=== PATIENT | male | born 1950 | race Caucasian/White ===

== ENCOUNTER 2018-06-11 10:23 | Inpatient (IN) | payer MEDICARE, OTHER ==
[~2018-06-11] VITALS: Ht 172.7 cm; Wt 127.5 kg
--- NOTE | 2018-06-11 10:38 | NUR ---
Note undone in EDM - 06/11/18 at 1131 by MELVINA Pt extremely tremulous. Reports last drink of alcohol yesterday. Nl intake 12pk beer/daily. +nausea & anxiety. Hx withdrawal sz. Sz precautions IP,cardiac, NIbP & Spo2 monitors & IV NSL placed.
[2018-06-11] MEDS ORDERED: methylPREDNISolone SOD SUCC 125 MG/2 ML IVP ONE (11:00)
[2018-06-11] MEDS ORDERED: ALBUTEROL/IPRATROPIUM 2.5MG/0.5MG, 3 ML ONE ×3 (11:02→14:29)
[2018-06-11] MEDS ORDERED: ALBUTEROL SULFATE 2.5MG/0.5ML ONE (11:04)
[2018-06-11] MEDS: ALBUTEROL/IPRATROPIUM 2.5MG/0.5MG, 3 ML NPPB SCH ×3 (11:10→20:00)
--- NOTE | 2018-06-11 11:31 | NUR ---
lab at bedside. labs and bc drawn. vss. no other nees at this time.
[2018-06-11] MEDS ORDERED: methylPREDNISolone SOD SUCC 125 MG/2 ML ONE (11:34)
--- NOTE | 2018-06-11 11:47 | NUR ---
IV ESTABLISHED. MEDICATED PER JUN. PT CHANGED TO OXY MASK. VSS. NO NEEDS AT THIS TIME.
[2018-06-11 11:53] LABS: ALANINE AMINOTRANSFERASE 67 U/L (12-78); ALBUMIN 2.8 g/dL (3.4-5.0); ANION GAP 4 mmol/L (5-15); CALCIUM 8.4 mg/dL (8.5-10.1); CHLORIDE 107 mmol/L (98-107); CREATININE 1.53 mg/dL (0.7-1.3); PROTHROMBIN TIME 10.5 Seconds (9.6-11.5)
[2018-06-11 11:58] LABS: ALKALINE PHOSPHATASE 87 U/L (45-117); BILIRUBIN,TOTAL 0.8 mg/dL (0.2-1.0); TOTAL PROTEIN 6.4 g/dL (6.4-8.2)
[2018-06-11] MEDS ORDERED: LIPITOR PO (11:58)
[2018-06-11] MEDS ORDERED: SPIRIVA INH (11:58)
[2018-06-11] MEDS ORDERED: ALBUTEROL INH (11:58)
[2018-06-11] MEDS ORDERED: METO25TA35 PO (11:58)
[2018-06-11] MEDS ORDERED: ADVAIR INH (11:58)
[2018-06-11] MEDS ORDERED: SODIUM CHLORIDE 0.9%, 500ML IVBOLUS ONE (12:00)
[2018-06-11 12:01] LABS: MD YES; MEAN CORPUSCULAR HEMOGLOBIN 31.2 pg (27.5-34.5); MEAN CORPUSCULAR HGB CONC 33.6 g/dL (33.2-36.2); PLATELET COUNT 64 x10^3/uL (130-400); RED BLOOD COUNT 5.56 x10^6/uL (4.38-5.82); RED CELL DISTRIBUTION WIDTH 13.8 % (9.4-14.8); TROPONIN I 0.289 ng/mL (0.000-0.045)
[2018-06-11 12:04] LABS: EOS#(MANUAL) 0.06 x10^3/uL (0.0-0.4); EOS% (MANUAL) 1 % (1-7); LYMPH#(MANUAL) 0.72 x10^3/uL (1-3.4); LYMPHS% (MANUAL) 12 % (22-44); MONOS#(MANUAL) 0.48 x10^3/uL (0.3-2.7); MONOS% (MANUAL) 8 % (2-9); SEG#(MANUAL) 4.74 x10^3/uL (1.8-6.8); SEGS% (MANUAL) 79 % (42-75)
[2018-06-11 12:05] LABS: <PLATELET ESTIMATE> DECREASED; <RBC MORPHOLOGY> NORMAL; LARGE PLATELETS 1+
[2018-06-11] MEDS ORDERED: PIPERACILLIN/TAZO/PMX 4.5GM 100 ML IV ONE (12:30)
[2018-06-11] MEDS ORDERED: VANCOMYCIN PER PHARMACY MC PRN (12:30)
--- NOTE | 2018-06-11 12:45 | NUR ---
pt resting in room with family at bedside. vss. awaiting ct.
[2018-06-11] MEDS ORDERED: VANCOMYCIN 2,400 MG in SODIUM CHLORIDE 0.9% 500 ML IV ONE (13:00)
--- NOTE | 2018-06-11 13:05 | NUR ---
PT BACK FROM CT. AWAITING RESULTS.
[2018-06-11] MEDS ORDERED: OMNIPAQUE 350 MG/ML, 100ML BOTTLE ONE (13:12)
[2018-06-11] MEDS ORDERED: HEPARIN 25,000 UNITS/500ML PMX 500 ML ONE (13:52)
[2018-06-11] MEDS ORDERED: HEPARIN 5,000 UNITS/ML, 1ML ONE (13:52)
[2018-06-11] MEDS ORDERED: HEPARIN 5,000 UNITS/ML, 1ML IV ONE (14:00)
[2018-06-11] MEDS ORDERED: HEPARIN 25,000 UNITS/500ML PMX 500 ML IV PRN (14:00)
[2018-06-11] MEDS ORDERED: HEPARIN 5,000 UNITS/ML, 1ML IV PRN (14:00)
--- NOTE | 2018-06-11 15:08 | NUR ---
ANY [employer] TO BEDSIDE. VSS. NO NEEDS AT THIS TIME.
--- NOTE | 2018-06-11 15:15 | NUR ---
per catheter builder, will need anesthesia involvement for procedure. unknown time for procedure.
[2018-06-11] MEDS ORDERED: hydrALAzine 20 MG/ML, 1ML IVPush PRN (15:30)
[2018-06-11] MEDS ORDERED: POLYETHYLENE GLYCOL 17 GM PACKET PO PRN (15:30)
[2018-06-11] MEDS ORDERED: BISACODYL 10 MG SUPP PR PRN ×2 (15:30→18:00)
[2018-06-11] MEDS ORDERED: ACETAMINOPHEN 325 MG TABLET PO PRN (15:30)
--- NOTE | 2018-06-11 15:32 | NUR ---
new orders for venous duplex received at this time.
[2018-06-11] MEDS ORDERED: LIDOCAINE-MPF 1%, 5ML ONE ×2 (15:37)
[2018-06-11] MEDS ORDERED: FENTANYL PF 100 MCG/2ML ONE (15:52)
--- NOTE | 2018-06-11 15:59 | NUR ---
PT TO IR.
[2018-06-11] MEDS ORDERED: DEXAMETHASONE 4 MG/ML, 1ML ONE (16:00)
[2018-06-11] MEDS ORDERED: ROCURONIUM 10MG/ML,5ML ONE (16:00)
[2018-06-11] MEDS: methylPREDNISolone SOD SUCC 40 MG/ML IV SCH ×2 (16:00→21:59)
[2018-06-11] MEDS ORDERED: SUCCINYLCHOLINE 20 MG/ML, 10ML ONE (16:00)
[2018-06-11] MEDS ORDERED: MIDAZOLAM 1 MG/ML, 5ML ONE (16:53)
[2018-06-11] MEDS ORDERED: PROPOFOL 100 ML IV ONE (17:35)
[2018-06-11] MEDS ORDERED: NOREPINEPHRINE 4 MG in SODIUM CHLORIDE 0.9% 246 ML IV PRN (17:54)
[2018-06-11] MEDS ORDERED: FENTANYL PF 100 MCG/2ML IVPush PRN (18:00)
[2018-06-11] MEDS ORDERED: GLUCAGON 1 MG IM PRN (18:00)
[2018-06-11] MEDS ORDERED: LIDOCAINE-MPF 1%, 2ML ENDO PRN (18:00)
[2018-06-11] MEDS ORDERED: SENNA/DOCUSATE TABLET NG PRN (18:00)
[2018-06-11] MEDS ORDERED: DEXTROSE 50%, 50ML SYRINGE IVPush PRN (18:00)
[2018-06-11] MEDS ORDERED: DEXTROSE 4 GM TAB.CHEW PO PRN (18:00)
[2018-06-11] MEDS ORDERED: SENNOSIDES 8.8 MG/5 ML ORAL SOL NG PRN (18:00)
[2018-06-11] MEDS ORDERED: LACTULOSE 20 GM/30 ML UDC NG PRN (18:00)
[2018-06-11] MEDS ORDERED: PHARMACY MAY ADJ FOR RENAL FX MC SCH (18:00)
[2018-06-11] MEDS: ALBUTEROL/IPRATROPIUM 2.5MG/0.5MG, 3 ML INLINE SCH ×2 (18:00→22:40)
[2018-06-11 18:09] LABS: TROPONIN I 0.266 ng/mL (0.000-0.045)
[2018-06-11] MEDS: methylPREDNISolone SOD SUCC 125 MG/2 ML IVPush SCH ×2 (18:39→22:53)
[2018-06-11] MEDS: SODIUM CHLORIDE 0.9% 1,000 ML IV SCH ×2 (18:40→18:44)
[2018-06-11] MEDS: INSULIN LISPRO 100 UNITS/ML, PEN SQ-INSULIN SCH ×3 (18:42→22:54)
[2018-06-11] MEDS: HEPARIN 5,000 UNITS/ML, 1ML SQ SCH (18:45)
[2018-06-11 18:51] LABS: TROPONIN I 0.266 ng/mL (0.000-0.045)
[2018-06-11 19:06] LABS: BASOPHILS % (AUTO) 0 % (0-1); EOSINOPHILS # (AUTO) 0.08 x10^3/uL (0-0.4); EOSINOPHILS % (AUTO) 2 % (1-7); LYMPHOCYTES # (AUTO) 0.36 x10^3/uL (1-3.4); LYMPHOCYTES % (AUTO) 7 % (22-44); MD SCAN; MEAN CORPUSCULAR HEMOGLOBIN 31.3 pg (27.5-34.5); MEAN CORPUSCULAR HGB CONC 33.5 g/dL (33.2-36.2); MEAN CORPUSCULAR VOLUME 93.2 fL (81-97); MEAN PLATELET VOLUME 9.1 fL (7.4-10.4); MONOCYTES # (AUTO) 0.08 x10^3/uL (0.2-0.8); MONOCYTES % (AUTO) 2 % (2-9); NEUTROPHILS # (AUTO) 4.71 x10^3/uL (1.8-6.8); NEUTROPHILS % (AUTO) 90 % (42-75); PLATELET COUNT 62 x10^3/uL (130-400); RED BLOOD COUNT 5.66 x10^6/uL (4.38-5.82); RED CELL DISTRIBUTION WIDTH 13.8 % (9.4-14.8)
[2018-06-11] MEDS: BUDESONIDE 0.5 MG/2 ML INHA INH SCH (21:00)
[2018-06-11] MEDS: FAMOTIDINE 20 MG/2 ML IVPush SCH (22:53)
[2018-06-11] MEDS: SODIUM CHLORIDE FLUSH 10ML SYR IVF SCH (22:53)
[2018-06-11] MEDS: PROPOFOL 100 ML IV PRN (23:20)
[2018-06-12 00:21] LABS: TROPONIN I 0.239 ng/mL (0.000-0.045)
[2018-06-12] MEDS: ALTEPLASE 10 MG in SODIUM CHLORIDE 0.9% 90 ML IV SCH ×3 (01:52→23:48)
[2018-06-12] MEDS: HEPARIN 5,000 UNITS/ML, 1ML SQ SCH ×2 (01:58→09:29)
[2018-06-12] MEDS: methylPREDNISolone SOD SUCC 40 MG/ML IV SCH ×4 (02:17→22:11)
[2018-06-12] MEDS: ALBUTEROL/IPRATROPIUM 2.5MG/0.5MG, 3 ML INLINE SCH ×6 (02:45→22:00)
[2018-06-12] MEDS: methylPREDNISolone SOD SUCC 125 MG/2 ML IVPush SCH (04:10)
[2018-06-12] MEDS: INSULIN LISPRO 100 UNITS/ML, PEN SQ-INSULIN SCH ×8 (04:11→22:15)
[2018-06-12 04:36] LABS: MEAN CORPUSCULAR HEMOGLOBIN 31.4 pg (27.5-34.5); MEAN CORPUSCULAR HGB CONC 33.6 g/dL (33.2-36.2); MEAN CORPUSCULAR VOLUME 93.3 fL (81-97); MEAN PLATELET VOLUME 9.3 fL (7.4-10.4); PLATELET COUNT 58 x10^3/uL (130-400); RED BLOOD COUNT 5.08 x10^6/uL (4.38-5.82); RED CELL DISTRIBUTION WIDTH 13.9 % (9.4-14.8)
[2018-06-12] MEDS: SODIUM CHLORIDE 0.9% 1,000 ML IV SCH ×4 (04:45→22:19)
[2018-06-12 04:47] LABS: CHLORIDE 109 mmol/L (98-107)
[2018-06-12 04:53] LABS: ALANINE AMINOTRANSFERASE 52 U/L (12-78); ALBUMIN 2.4 g/dL (3.4-5.0); ALKALINE PHOSPHATASE 79 U/L (45-117); ANION GAP 6 mmol/L (5-15); BILIRUBIN,TOTAL 0.6 mg/dL (0.2-1.0); CALCIUM 7.5 mg/dL (8.5-10.1); TOTAL PROTEIN 5.7 g/dL (6.4-8.2)
[2018-06-12 05:35] LABS: HEMOGLOBIN A1C 6.9 % (4.2-6.3)
[2018-06-12 05:41] LABS: BASOPHILS # (AUTO) 0.01 x10^3/uL (0-0.1); BASOPHILS % (AUTO) 0 % (0-1); EOSINOPHILS % (AUTO) 0 % (1-7); LYMPHOCYTES # (AUTO) 0.49 x10^3/uL (1-3.4); LYMPHOCYTES % (AUTO) 11 % (22-44); MD SCAN; MONOCYTES # (AUTO) 0.15 x10^3/uL (0.2-0.8); MONOCYTES % (AUTO) 3 % (2-9); NEUTROPHILS # (AUTO) 4.03 x10^3/uL (1.8-6.8); NEUTROPHILS % (AUTO) 86 % (42-75)
[2018-06-12] MEDS: ALBUTEROL/IPRATROPIUM 2.5MG/0.5MG, 3 ML NPPB SCH ×3 (07:25→14:15)
[2018-06-12] MEDS: BUDESONIDE 0.5 MG/2 ML INHA INH SCH ×2 (07:25→19:27)
[2018-06-12] MEDS: SODIUM CHLORIDE FLUSH 10ML SYR IVF SCH ×2 (09:28→22:11)
[2018-06-12] MEDS: FAMOTIDINE 20 MG/2 ML IVPush SCH ×2 (09:30→22:11)
[2018-06-12] MEDS ORDERED: HEPARIN 25,000 UNITS/500ML PMX 0 ML ONE (09:57)
--- NOTE | 2018-06-12 11:06 | NUR ---
TF GOAL: w/ propofol: VITAL HIGH PROTEIN @ 65ML/HR off propofol: VITAL HIGH PROTEIN @ 75ML/HR
[2018-06-12] MEDS: PROPOFOL 100 ML IV PRN ×3 (13:15→22:11)
[2018-06-12] MEDS ORDERED: SODIUM CHLORIDE 0.9%, 500ML IVBOLUS ONE ×2 (15:35→17:30)
[2018-06-12] MEDS ORDERED: FUROSEMIDE 20 MG/2 ML ONE (17:26)
[2018-06-12] MEDS ORDERED: FUROSEMIDE 20 MG/2 ML IV ONE (17:30)
[2018-06-12 17:55] LABS: MICROSCOPIC INDICATED
[2018-06-12 18:07] LABS: CULTURE INDICATED? YES
[2018-06-12 18:13] LABS: ANION GAP 4 mmol/L (5-15); CALCIUM 7.4 mg/dL (8.5-10.1); CHLORIDE 112 mmol/L (98-107); CREATININE 1.94 mg/dL (0.7-1.3)
[2018-06-13] MEDS: ALBUTEROL/IPRATROPIUM 2.5MG/0.5MG, 3 ML INLINE SCH ×6 (02:00→23:37)
[2018-06-13] MEDS: PROPOFOL 100 ML IV PRN ×5 (02:53→21:43)
[2018-06-13] MEDS: methylPREDNISolone SOD SUCC 40 MG/ML IV SCH ×2 (04:14→16:48)
[2018-06-13] MEDS: INSULIN LISPRO 100 UNITS/ML, PEN SQ-INSULIN SCH ×8 (04:15→21:44)
[2018-06-13 04:51] LABS: MEAN CORPUSCULAR HEMOGLOBIN 31.4 pg (27.5-34.5); MEAN CORPUSCULAR HGB CONC 33.4 g/dL (33.2-36.2); MEAN CORPUSCULAR VOLUME 93.9 fL (81-97); MEAN PLATELET VOLUME 9.1 fL (7.4-10.4); PLATELET COUNT 82 x10^3/uL (130-400); RED BLOOD COUNT 4.65 x10^6/uL (4.38-5.82); RED CELL DISTRIBUTION WIDTH 13.9 % (9.4-14.8)
[2018-06-13 05:43] LABS: BASOPHILS % (AUTO) 0 % (0-1); EOSINOPHILS # (AUTO) 0.21 x10^3/uL (0-0.4); EOSINOPHILS % (AUTO) 3 % (1-7); LYMPHOCYTES # (AUTO) 0.42 x10^3/uL (1-3.4); LYMPHOCYTES % (AUTO) 6 % (22-44); MD SCAN; MONOCYTES # (AUTO) 0.47 x10^3/uL (0.2-0.8); MONOCYTES % (AUTO) 6 % (2-9); NEUTROPHILS # (AUTO) 6.42 x10^3/uL (1.8-6.8); NEUTROPHILS % (AUTO) 85 % (42-75)
[2018-06-13] MEDS: SODIUM CHLORIDE 0.9% 1,000 ML IV SCH (06:07)
[2018-06-13] MEDS: BUDESONIDE 0.5 MG/2 ML INHA INH SCH ×2 (07:20→21:09)
[2018-06-13] MEDS: FAMOTIDINE 20 MG/2 ML IVPush SCH ×2 (08:07→21:42)
[2018-06-13] MEDS: SODIUM CHLORIDE FLUSH 10ML SYR IVF SCH ×2 (08:08→21:42)
[2018-06-13 08:28] LABS: ANION GAP 9 mmol/L (5-15); CALCIUM 7.4 mg/dL (8.5-10.1); CHLORIDE 111 mmol/L (98-107); CREATININE 2.01 mg/dL (0.7-1.3)
[2018-06-13] MEDS ORDERED: FUROSEMIDE 40 MG/4 ML ONE (09:11)
[2018-06-13] MEDS ORDERED: FUROSEMIDE 40 MG/4 ML IV ONE (09:30)
[2018-06-13] MEDS ORDERED: HEPARIN 5,000 UNITS/ML, 1ML IV ONE (12:00)
[2018-06-13] MEDS ORDERED: HEPARIN 5,000 UNITS/ML, 1ML IV PRN (12:00)
[2018-06-13 12:55] LABS: CREATININE,URINE RANDOM 24.1 mg/dL
[2018-06-13] MEDS: HEPARIN 25,000 UNITS/500ML PMX 500 ML IV PRN (14:38)
[2018-06-14] MEDS: ALBUTEROL/IPRATROPIUM 2.5MG/0.5MG, 3 ML INLINE SCH ×4 (03:00→13:34)
[2018-06-14 03:22] LABS: MEAN CORPUSCULAR HEMOGLOBIN 31.5 pg (27.5-34.5); MEAN CORPUSCULAR HGB CONC 33.5 g/dL (33.2-36.2); MEAN CORPUSCULAR VOLUME 94.3 fL (81-97); MEAN PLATELET VOLUME 9.1 fL (7.4-10.4); PLATELET COUNT 100 x10^3/uL (130-400); RED BLOOD COUNT 4.58 x10^6/uL (4.38-5.82); RED CELL DISTRIBUTION WIDTH 14.1 % (9.4-14.8)
[2018-06-14 03:39] LABS: MD YES
[2018-06-14 03:42] LABS: <PLATELET ESTIMATE> DECREASED; <PLT MORPHOLOGY> NORMAL PLT MORPH; <RBC MORPHOLOGY> NORMAL; LYMPH#(MANUAL) 0.68 x10^3/uL (1-3.4); LYMPHS% (MANUAL) 9 % (22-44); MONOS% (MANUAL) 4 % (2-9); SEG#(MANUAL) 6.61 x10^3/uL (1.8-6.8); SEGS% (MANUAL) 87 % (42-75)
[2018-06-14] MEDS: PROPOFOL 100 ML IV PRN (04:07)
[2018-06-14] MEDS: INSULIN LISPRO 100 UNITS/ML, PEN SQ-INSULIN SCH ×4 (04:13→21:00)
[2018-06-14] MEDS: methylPREDNISolone SOD SUCC 40 MG/ML IV SCH (04:13)
[2018-06-14] MEDS: BUDESONIDE 0.5 MG/2 ML INHA INH SCH ×2 (07:42→20:32)
[2018-06-14 08:15] LABS: ANION GAP 6 mmol/L (5-15); CALCIUM 7.6 mg/dL (8.5-10.1); CHLORIDE 113 mmol/L (98-107); CREATININE 1.94 mg/dL (0.7-1.3)
[2018-06-14] MEDS: SODIUM CHLORIDE FLUSH 10ML SYR IVF SCH ×2 (09:09→21:11)
[2018-06-14] MEDS: FUROSEMIDE 40 MG/4 ML IV SCH ×2 (09:09→21:16)
[2018-06-14] MEDS: FAMOTIDINE 20 MG/2 ML IVPush SCH (09:09)
[2018-06-14] MEDS: HEPARIN 25,000 UNITS/500ML PMX 500 ML IV PRN (12:17)
[2018-06-14] MEDS: ALBUTEROL/IPRATROPIUM 2.5MG/0.5MG, 3 ML NPPB SCH ×2 (15:00→20:32)
[2018-06-14] MEDS ORDERED: FAMOTIDINE 40 MG/5 ML ORAL SUSP PO SCH (21:00)
[2018-06-14] MEDS ORDERED: FAMOTIDINE 40 MG TABLET ONE (21:13)
[2018-06-14] MEDS ORDERED: FAMOTIDINE 20 MG TABLET ONE (21:14)
[2018-06-15 04:56] LABS: MEAN CORPUSCULAR HEMOGLOBIN 30.4 pg (27.5-34.5); MEAN CORPUSCULAR HGB CONC 32.6 g/dL (33.2-36.2); MEAN CORPUSCULAR VOLUME 93.4 fL (81-97); MEAN PLATELET VOLUME 8.4 fL (7.4-10.4); PLATELET COUNT 109 x10^3/uL (130-400); RED BLOOD COUNT 4.88 x10^6/uL (4.38-5.82); RED CELL DISTRIBUTION WIDTH 14.6 % (9.4-14.8)
[2018-06-15 05:00] LABS: ANION GAP 2 mmol/L (5-15); CALCIUM 8.1 mg/dL (8.5-10.1); CHLORIDE 106 mmol/L (98-107); CREATININE 1.76 mg/dL (0.7-1.3)
[2018-06-15 05:45] LABS: BASOPHILS # (AUTO) 0.01 x10^3/uL (0-0.1); BASOPHILS % (AUTO) 0 % (0-1); EOSINOPHILS # (AUTO) 0.03 x10^3/uL (0-0.4); EOSINOPHILS % (AUTO) 0 % (1-7); LYMPHOCYTES # (AUTO) 1.32 x10^3/uL (1-3.4); LYMPHOCYTES % (AUTO) 15 % (22-44); MD SCAN; MONOCYTES # (AUTO) 0.78 x10^3/uL (0.2-0.8); MONOCYTES % (AUTO) 9 % (2-9); NEUTROPHILS # (AUTO) 6.44 x10^3/uL (1.8-6.8); NEUTROPHILS % (AUTO) 75 % (42-75)
[2018-06-15] MEDS: INSULIN LISPRO 100 UNITS/ML, PEN SQ-INSULIN SCH ×4 (07:54→21:00)
[2018-06-15] MEDS: BUDESONIDE 0.5 MG/2 ML INHA INH SCH ×2 (08:35→21:20)
[2018-06-15] MEDS: ALBUTEROL/IPRATROPIUM 2.5MG/0.5MG, 3 ML NPPB SCH ×7 (08:35→21:20)
[2018-06-15] MEDS ORDERED: FAMOTIDINE 20 MG TABLET ONE ×2 (09:08→20:57)
[2018-06-15] MEDS: FAMOTIDINE 40 MG/5 ML ORAL SUSP PO SCH ×2 (09:10→21:00)
[2018-06-15] MEDS: SODIUM CHLORIDE FLUSH 10ML SYR IVF SCH ×2 (09:11→21:00)
[2018-06-15] MEDS: FUROSEMIDE 40 MG/4 ML IV SCH (09:11)
[2018-06-15] MEDS: METOPROLOL TARTRATE 25 MG TABLET PO SCH ×2 (10:00→21:00)
[2018-06-15] MEDS ORDERED: SPIRIVA INH SCH (10:00)
[2018-06-15] MEDS ORDERED: ADVAIR INH SCH (10:00)
[2018-06-15] MEDS: HEPARIN 25,000 UNITS/500ML PMX 500 ML IV PRN (10:25)
[2018-06-15] MEDS ORDERED: BUDESONIDE 0.5 MG/2 ML INHA INH SCH (11:00)
[2018-06-15] MEDS: FAMOTIDINE 20 MG TABLET PO SCH (21:00)
[2018-06-15] MEDS: APIXABAN 5 MG TABLET PO SCH (21:03)
[2018-06-16 04:43] LABS: MEAN CORPUSCULAR HEMOGLOBIN 31.4 pg (27.5-34.5); MEAN CORPUSCULAR HGB CONC 33.4 g/dL (33.2-36.2); MEAN PLATELET VOLUME 7.9 fL (7.4-10.4); PLATELET COUNT 97 x10^3/uL (130-400); RED BLOOD COUNT 4.95 x10^6/uL (4.38-5.82); RED CELL DISTRIBUTION WIDTH 14.1 % (9.4-14.8)
[2018-06-16 04:47] LABS: ANION GAP 3 mmol/L (5-15); CALCIUM 8.3 mg/dL (8.5-10.1); CHLORIDE 104 mmol/L (98-107); CREATININE 1.45 mg/dL (0.7-1.3)
[2018-06-16 04:59] LABS: BASOPHILS # (AUTO) 0.04 x10^3/uL (0-0.1); BASOPHILS % (AUTO) 1 % (0-1); EOSINOPHILS # (AUTO) 0.13 x10^3/uL (0-0.4); EOSINOPHILS % (AUTO) 2 % (1-7); LYMPHOCYTES # (AUTO) 1.58 x10^3/uL (1-3.4); LYMPHOCYTES % (AUTO) 22 % (22-44); MD SCAN; MONOCYTES # (AUTO) 0.65 x10^3/uL (0.2-0.8); MONOCYTES % (AUTO) 9 % (2-9); NEUTROPHILS # (AUTO) 4.72 x10^3/uL (1.8-6.8); NEUTROPHILS % (AUTO) 66 % (42-75)
[2018-06-16] MEDS: ALBUTEROL/IPRATROPIUM 2.5MG/0.5MG, 3 ML NPPB SCH ×4 (06:00→20:35)
[2018-06-16 06:35] VITALS: BP 107/69
[2018-06-16] MEDS: INSULIN LISPRO 100 UNITS/ML, PEN SQ-INSULIN SCH ×4 (07:00→22:00)
[2018-06-16] MEDS: METOPROLOL TARTRATE 25 MG TABLET PO SCH ×2 (09:00→22:00)
[2018-06-16] MEDS: BUDESONIDE 0.5 MG/2 ML INHA INH SCH ×2 (09:00→20:35)
[2018-06-16] MEDS: APIXABAN 5 MG TABLET PO SCH ×2 (09:09→22:00)
[2018-06-16] MEDS: FAMOTIDINE 20 MG TABLET PO SCH ×2 (09:09→22:00)
[2018-06-16] MEDS: ATORVASTATIN 40 MG TABLET PO SCH (09:09)
[2018-06-16] MEDS: SODIUM CHLORIDE FLUSH 10ML SYR IVF SCH ×2 (09:10→22:00)
[2018-06-16 19:35] VITALS: BP 116/76
[2018-06-17 03:56] VITALS: BP 102/65
[2018-06-17 04:31] LABS: ANION GAP 4 mmol/L (5-15); CALCIUM 8.2 mg/dL (8.5-10.1); CHLORIDE 104 mmol/L (98-107)
[2018-06-17 04:32] LABS: CREATININE 1.34 mg/dL (0.7-1.3)
[2018-06-17] MEDS: INSULIN LISPRO 100 UNITS/ML, PEN SQ-INSULIN SCH ×4 (07:00→20:46)
[2018-06-17] MEDS: BUDESONIDE 0.5 MG/2 ML INHA INH SCH ×2 (07:46→19:12)
[2018-06-17] MEDS: ALBUTEROL/IPRATROPIUM 2.5MG/0.5MG, 3 ML NPPB SCH ×4 (07:46→19:12)
[2018-06-17 08:00] VITALS: BP 129/80
[2018-06-17] MEDS: METOPROLOL TARTRATE 25 MG TABLET PO SCH ×2 (09:00→20:45)
[2018-06-17] MEDS: SODIUM CHLORIDE FLUSH 10ML SYR IVF SCH ×2 (09:00→20:43)
[2018-06-17] MEDS: APIXABAN 5 MG TABLET PO SCH ×2 (09:13→20:43)
[2018-06-17] MEDS: FAMOTIDINE 20 MG TABLET PO SCH ×2 (09:13→20:44)
[2018-06-17] MEDS: ATORVASTATIN 40 MG TABLET PO SCH (09:13)
[2018-06-17 19:39] VITALS: BP 102/67
[2018-06-18] MEDS: ALBUTEROL/IPRATROPIUM 2.5MG/0.5MG, 3 ML NPPB SCH ×2 (06:00→10:56)
[2018-06-18 06:17] LABS: ANION GAP 4 mmol/L (5-15); CALCIUM 8.4 mg/dL (8.5-10.1); CHLORIDE 103 mmol/L (98-107)
[2018-06-18 06:19] LABS: CREATININE 1.42 mg/dL (0.7-1.3)
[2018-06-18] MEDS: INSULIN LISPRO 100 UNITS/ML, PEN SQ-INSULIN SCH ×2 (07:00→11:00)
[2018-06-18] MEDS: BUDESONIDE 0.5 MG/2 ML INHA INH SCH (07:47)
[2018-06-18 08:00] VITALS: BP 113/75
[2018-06-18] MEDS: METOPROLOL TARTRATE 25 MG TABLET PO SCH (08:41)
[2018-06-18] MEDS: SODIUM CHLORIDE FLUSH 10ML SYR IVF SCH (08:41)
[2018-06-18] MEDS: FAMOTIDINE 20 MG TABLET PO SCH (08:41)
[2018-06-18] MEDS: APIXABAN 5 MG TABLET PO SCH (08:41)
[2018-06-18] MEDS: ATORVASTATIN 40 MG TABLET PO SCH (08:41)
[2018-06-18] MEDS ORDERED: APIX5TAB PO (10:59)
== END 2018-06-18 15:03 | disposition home or self-care (01) | DRG 208 ==
LOC: ED 11:36 → EDIP 14:05 → CCU 16:59 → ICU 06-15 10:36 → 4WST 06-16 05:18
PROVIDERS: ADMIT Hospitalist; ATTEND Hospitalist
PROC: 5A1945Z Respiratory Ventilation, 24-96 Consecutive Hours (ICD-10-PCS; 2018-06-11)
PROC: 0BH17EZ Insertion of Endotracheal Airway into Trachea, Via Natural or Artificial Opening (ICD-10-PCS; 2018-06-11)
PROC: 02HQ33Z Insertion of Infusion Device into Right Pulmonary Artery, Percutaneous Approach (ICD-10-PCS; 2018-06-11)
PROC: 3E05317 Introduction of Other Thrombolytic into Peripheral Artery, Percutaneous Approach (ICD-10-PCS; principal; 2018-06-11 16:00)
DX: I26.99 Other pulmonary embolism without acute cor pulmonale (principal); J96.01 Acute respiratory failure with hypoxia; N17.0 Acute kidney failure with tubular necrosis; J98.11 Atelectasis; I82.431 Acute embolism and thrombosis of right popliteal vein; I82.491 Acute embolism and thrombosis of other specified deep vein of right lower extremity; I82.403 Acute embolism and thrombosis of unspecified deep veins of lower extremity, bilateral; Z99.11 Dependence on respirator [ventilator] status; Z68.41 Body mass index [BMI] 40.0-44.9, adult; E66.01 Morbid (severe) obesity due to excess calories; D64.9 Anemia, unspecified; E11.9 Type 2 diabetes mellitus without complications; D69.6 Thrombocytopenia, unspecified; E78.5 Hyperlipidemia, unspecified; F17.200 Nicotine dependence, unspecified, uncomplicated; I07.1 Rheumatic tricuspid insufficiency; I11.9 Hypertensive heart disease without heart failure; I27.20 Pulmonary hypertension, unspecified; I51.3 Intracardiac thrombosis, not elsewhere classified; J44.9 Chronic obstructive pulmonary disease, unspecified; Z79.01 Long term (current) use of anticoagulants; Z80.0 Family history of malignant neoplasm of digestive organs; Z87.01 Personal history of pneumonia (recurrent); Z99.81 Dependence on supplemental oxygen
CPT/HCPCS: 36415; 36600; 37211; 71045; 71275; 75741; 76770; 76937; 80048; 80053; 81001; 82436; 82570; 82803; 82962; 83036; 83605; 83735; 83880; 83935; 84100; 84133; 84145; 84300; 84478; 84484; 85025; 85520; 85610; 85730; 87040; 87070; 87081; 87086; 87205; 93005; 93306; 93308; 93325; 93970; 93975; 94002; 94003; 94640; 96361; 96365; 96375; 99291; C1894; G0378; J1100; J1644; J1940; J2250; J2543; J2704; J2997; J3010; J3370; J7620; J7626; Q9967; C1751; C1769; J0330; J1815; J2920; J2930; J3490; J7030; J7040